=== PATIENT | male | born 1945 | race Caucasian/White ===

== ENCOUNTER 2024-05-11 06:00 | Day surgery (SDC) | payer OTHER ==
[2024-05-09 15:11] VITALS: BMI 25.4
[2024-05-11] MEDS ORDERED: CEFAZOLIN 2 GM in DEXTROSE 5%-WATER - 100 ML IVPB ONE (07:00)
[2024-05-11] MEDS ORDERED: BUPIVACAINE LIPOSOME/PF (EXPAREL) 266 MG/20 ML VIAL ONE (07:33)
[2024-05-11] MEDS ORDERED: MIDAZOLAM HCL 2 MG/2 ML SINGLE DOSE VIAL ONE ×2 (07:34→09:28)
[2024-05-11] MEDS ORDERED: BUPIVACAINE HCL/PF 0.5% (5MG/ML) 10 ML VIAL ONE ×2 (07:34→07:48)
[2024-05-11] MEDS ORDERED: KETOROLAC TROMETHAMINE 60 MG/2 ML VIAL ONE (07:48)
[2024-05-11] MEDS ORDERED: BUPIVACAINE HCL/PF 0.25% (2.5MG/ML) 10 ML VIAL ONE (07:48)
[2024-05-11] MEDS ORDERED: VANCOMYCIN 1,000 MG VIAL (RESTRICTED TO ID ONLY) ONE (07:48)
[2024-05-11] MEDS ORDERED: BUPIVACAINE HCL/PF 2.5 MG/ML - 30 ML VIAL IJ ONE (07:48)
[2024-05-11] MEDS ORDERED: ePHEDrine SULFATE 50 MG/1 ML AMPULE ONE (08:08)
[2024-05-11] MEDS ORDERED: PROPOFOL 20 ML ONE ×2 (08:18→08:50)
[2024-05-11] MEDS ORDERED: ONDANSETRON 4 MG/2 ML VIAL IVPUSH PRN (10:30)
[2024-05-11] MEDS ORDERED: MAGNESIUM HYDROX 2400MG/30ML ORAL SUSPENSION 30 ML CUP PO PRN (10:30)
[2024-05-11] MEDS ORDERED: LACTATED RINGERS SOLUTION 1,000 ML IV SCH (10:30)
[2024-05-11] MEDS ORDERED: MAG HYDROX/AL HYDROX/SIMETH 30 ML UNIT-DOSE CUP PO PRN (10:30)
[2024-05-11] MEDS ORDERED: ACETAMINOPHEN INJECTION 100 ML IVPB ONE (11:28)
[2024-05-11] MEDS: ACETAMINOPHEN 1000 MG/100 ML BAG IVPB SCH (11:32)
[2024-05-11] MEDS ORDERED: oxyCODONE HCL 5 MG TABLET PO PRN ×2 (11:35)
[2024-05-11] MEDS: INSULIN ASPART SLIDING SCALE (NOVOLOG) 1 VIAL SQ SCH (13:33)
[2024-05-11] MEDS: SODIUM CHLORIDE 1,000 ML IV SCH (16:38)
[2024-05-11] MEDS: CEFAZOLIN SODIUM 2 GM in DEXTROSE 5%-WATER 100 ML IVPB SCH (16:39)
[2024-05-11] MEDS ORDERED: metoPROLOL SUCCINATE 25 MG TAB.SR.24H (FP) PO SCH (22:00)
[2024-05-11] MEDS ORDERED: PATIENT'S OWN MEDICATION (NON-FORMULARY) (Mirabegron [Myrbetriq] 25 MG Tab.Er.24h) PO SCH (22:00)
[2024-05-11] MEDS ORDERED: amLODIPine BESYLATE 5 MG TABLET (FP) PO SCH (22:00)
[2024-05-11] MEDS ORDERED: RAMIPRIL 5 MG CAPSULE PO SCH (22:00)
[2024-05-11] MEDS ORDERED: PATIENT'S OWN MEDICATION (NON-FORMULARY) (Lisinopril [Zestril] 30 MG Tablet) PO SCH (22:00)
[2024-05-11] MEDS: RAMIPRIL 5 MG CAPSULE PO SCH (22:36)
[2024-05-11] MEDS: ASPIRIN COATED 81 MG TABLET.EC PO SCH (22:36)
[2024-05-11] MEDS: SENNOSIDES/DOCUSATE COMBO (SENNA PLUS) TABLET (UD) PO SCH (22:36)
[2024-05-11] MEDS: FINASTERIDE 5 MG TABLET (FP) PO SCH (22:36)
[2024-05-11] MEDS: ATORVASTATIN CA 40 MG TABLET (FP) PO SCH (22:36)
[2024-05-11] MEDS: TAMSULOSIN HCL 0.4 MG CAP PO SCH (22:37)
[2024-05-11] MEDS: metoPROLOL SUCCINATE 25 MG TAB.SR.24H (FP) PO SCH (22:37)
[2024-05-11] MEDS: amLODIPine BESYLATE 5 MG TABLET (FP) PO SCH (22:37)
[2024-05-11] MEDS ORDERED: REFRIGERATED ANITBIOTICS ONE ×2 (22:50→22:51)
[2024-05-12 07:41] LABS: HEMATOCRIT 41.1 % (35.4-49); HEMOGLOBIN 13.7 G/dL (11.7-16.9); MCH 27.9 pg (25.7-33.7); MCHC 33.2 g/dl (32.0-35.9); MEAN CELL VOLUME 84.1 fl (80-96); MEAN PLT VOLUME 8.2 fl (7.5-11.1); PLATELET COUNT 169.8 10^3/uL (134-434); RBC 4.89 10^6/uL (4.00-5.60); WHITE BLOOD COUNT 10.4 10^3/uL (4.0-10.8)
[2024-05-12 08:04] LABS: CALCIUM 8.9 mg/dl (8.5-10.1); CREATININE 0.7 mg/dl (0.6-1.3)
[2024-05-12] MEDS: PANTOPRAZOLE 40 MG TABLET PO SCH (10:20)
[2024-05-12] MEDS: ISOSORBIDE MONONITRATE 30 MG TAB.SR.24H (FP) PO SCH (10:20)
[2024-05-12 10:27] VITALS: RESP 18
[2024-05-12] MEDS: ACETAMINOPHEN 500 MG TABLET (FP) PO SCH (13:20)
[2024-05-12 14:12] VITALS: BP 122/64; PULSE 70; TEMP 98.3
== END 2024-05-12 16:15 | disposition home or self-care (01) ==
LOC: FASUSAT 06:00 → FM/S 12:20 → FASUSAT 05-12 16:15
PROVIDERS: ATTEND Internal Medicine
PROC: 8E0Y0CZ Robotic Assisted Procedure of Lower Extremity, Open Approach (ICD-10-PCS; 2024-05-11)
PROC: 0SRD0JA Replacement of Left Knee Joint with Synthetic Substitute, Uncemented, Open Approach (ICD-10-PCS; principal; 2024-05-11 08:34)
DX: M17.12 Unilateral primary osteoarthritis, left knee (principal)
CPT/HCPCS: 20985; 27447; C1776; S2900; 36415; 73560-TC-LT-FY; 80048; 82962; 85027; 94760; 97010-GP; 97116-GP; 97162-GP; J0131